=== PATIENT | female | born 1950 | race Caucasian/White ===

== ENCOUNTER → 2017-08-16 | Outpatient (CLI) | payer BC ==
[~2017-08-16] VITALS: Ht 156.2 cm; Wt 80.5 kg
[~2017-08-16] MED LIST: ALDACTONE 25MG25 M1 PO; ALDACTONE 25MG25 MG PO; ALDACTONE25 MG PO; ALDACTONE50 MG PO; ATACAND 16M16 MG/TAB PO; ATACAND8 MG PO; CALTRATE-600 W600 MG PO; CRANBERRY CONC500 MG PO; CRANBERRY1000 MG PO; DIAMOX 250MG250 MG PO; LORTAB 10/500 51 TAB PO; MACROBID 1100 MG/CAP PO; MOTRIN; MULTIPLE VITAMI1 CAP PO; MULTIPLE VITAMI1 TAB PO; MVI; NORCO 325 MG-51 TAB; PRILOSEC OTC20 MG PO; TOPROL XL25 MG PO; ULTRAM50 MG PO; WELLBUTRIN SR150 MG PO; WELLBUTRIN XL150 MG PO
[2017-08-16 13:19] VITALS: BP 110/74; PULSE 76
== END ==
LOC: LIGHT 12:48
DX: Z01.89 Encounter for other specified special examinations (principal)
CPT/HCPCS: G0463